=== PATIENT | female | born 1950 | race Two or more races ===

== ENCOUNTER → 2024-05-25 | Outpatient (CLI) | payer MEDICARE, SELFPAY ==
--- NOTE | 2024-05-25 16:38 | XR_ITS ---
Examination: PA lateral chest 2 views TECHNIQUE: Upright PA lateral chest 2 views Exam date and time: May 25, 2024 1646 hours Comparison July 09, 2023 INDICATIONS: Coughing beginning 3 weeks ago. FINDINGS: Interstitial disease throughout the lungs with more pronounced parenchymal disease in the right upper lobe Mild prominence left ventricle Prominent osteopenia IMPRESSION: Diffuse extensive interstitial disease, consider pulmonary fibrosis with early pneumonia right upper lobe Recommend high-resolution CT chest without contrast follow-up
== END | disposition home or self-care (01) ==
PROVIDERS: PCP Nurse Practitioner Primary Care; Referring Provider Nurse Practitioner Primary Care; Visit Provider Nurse Practitioner Primary Care
DX: R91.8 Other nonspecific abnormal finding of lung field (principal)
CPT/HCPCS: 71046

== ENCOUNTER → 2024-08-18 | Outpatient (CLI) | payer MEDICARE, SELFPAY ==
[2024-08-18 11:52] LABS: Base Excess -1 (-3-3); HCO3 23 mEq/L (20-26); Inspired Oxygen, FIO2 21 %; O2 Saturation 100 % (91-98); PCO2 35 mmHg (32.0-48.0); PO2 111 mmHg (83-108); pH, Arterial 7.43 (7.35-7.45)
[2024-08-18 11:53] LABS: Allen Test Not Performed; Puncture Site Left Brachial
[2024-08-18 12:48] VITALS: PULSE 67; RESP 20; O2SAT 97
== END | disposition home or self-care (01) ==
PROVIDERS: PCP Family Medicine; Referring Provider Specialist; Visit Provider Specialist
DX: R06.02 Shortness of breath (principal)
CPT/HCPCS: 36600; 82803; 94060; 94726; 94729